=== PATIENT | female | born 1970 | race Caucasian/White ===

== ENCOUNTER 2024-08-01 16:32 | Inpatient (IN) | payer OTHER ==
[2024-08-01] MEDS ORDERED: ACETAMINOPHEN INJECTION 100 ML ONE (18:03)
[2024-08-01] MEDS: LACTATED RINGERS SOLUTION 1000 ML INFUS.BAG IV ONE ×2 (18:23→18:48)
[2024-08-01] MEDS: ACETAMINOPHEN 1000 MG/100 ML BAG IVPB ONE (18:23)
[2024-08-01 18:36] LABS: HEMATOCRIT 38.1 % (32.4-45.2); HEMOGLOBIN 12.8 G/dL (10.7-15.3); MCH 29.9 pg (25.7-33.7); MCHC 33.6 g/dl (32.0-36.0); MEAN CELL VOLUME 88.7 fl (80-96); MEAN PLT VOLUME 9.1 fl (7.5-11.1); PLATELET COUNT 190.9 10^3/uL (134-434); RBC 4.29 10^6/uL (3.60-5.2); RDW 15.1 % (11.6-15.6); WHITE BLOOD COUNT 6.8 10^3/uL (4.0-10.8)
[2024-08-01 18:52] LABS: ALBUMIN 3.2 g/dl (3.4-5.0); ALK PHOS 1039 U/L (45-117); ANION GAP 9 mmol/L (4-13); BILIRUBIN,TOTAL 1.5 mg/dl (0.2-1); CALCIUM 8.5 mg/dl (8.5-10.1); CHLORIDE 102 mmol/L (98-107); CO2 27 mmol/L (21-32); CREATININE 0.7 mg/dl (0.6-1.3); GLUCOSE,RANDOM 94 mg/dl (74-106); MAGNESIUM 1.9 mg/dL (1.8-2.4); POTASSIUM 3.4 mmol/L (3.5-5.1); SGOT/AST 320 U/L (15-37); SGPT/ALT 448 U/L (7-52); SODIUM 138 mmol/L (136-145); TOT PROT 5.9 g/dl (6.4-8.2)
[2024-08-01 18:55] LABS: PLATELET ESTIMATE ADEQUATE
[2024-08-01] MEDS ORDERED: cefTRIAXone SODIUM 1 GM VIAL ONE (19:03)
[2024-08-01] MEDS: CEFTRIAXONE 1 GM in DEXTROSE 5%-WATER - 100 ML IVPB ONE (19:13)
[2024-08-01 21:16] LABS: HIV INTERPRETATION NEGATIVE (NEGATIVE)
[2024-08-01 21:41] LABS: ALBUMIN 2.8 g/dl (3.4-5.0); ALK PHOS 918 U/L (45-117); ANION GAP 7 mmol/L (4-13); BILIRUBIN,TOTAL 1.5 mg/dl (0.2-1); CHLORIDE 104 mmol/L (98-107); CO2 26 mmol/L (21-32); CREATININE 0.6 mg/dl (0.6-1.3); GLUCOSE,RANDOM 88 mg/dl (74-106); POTASSIUM 3.4 mmol/L (3.5-5.1); SGOT/AST 291 U/L (15-37); SGPT/ALT 386 U/L (7-52); SODIUM 137 mmol/L (136-145); TOT PROT 5.1 g/dl (6.4-8.2)
[2024-08-01] MEDS ORDERED: SODIUM CHLORIDE 1,000 ML IV SCH (21:45)
[2024-08-02] MEDS: KCL 10 MEQ IVPB 10 MEQ/100 ML INFUS.BAG IVPB SCH (00:36)
[2024-08-02 00:52] VITALS: BMI 24.6
[2024-08-02 08:34] LABS: CALCIUM 7.8 mg/dl (8.5-10.1); CREATININE 0.5 mg/dl (0.6-1.3); MAGNESIUM 1.9 mg/dL (1.8-2.4); PHOSPHOROUS 2.8 (2.5-4.9); POTASSIUM 3.5 mmol/L (3.5-5.1)
[2024-08-02 09:21] LABS: HEMATOCRIT 33.8 % (32.4-45.2); HEMOGLOBIN 11.4 GM/dL (10.7-15.3); MCH 29.3 pg (25.7-33.7); MCHC 33.8 g/dl (32.0-36.0); MEAN CELL VOLUME 86.7 fl (80-96); MEAN PLT VOLUME 8.6 fl (7.5-11.1); PLATELET COUNT 180 10^3/uL (134-434); WHITE BLOOD COUNT 6.2 K/mm3 (4.0-10.0)
[2024-08-02] MEDS: SODIUM CHLORIDE 1,000 ML IV SCH (10:00)
[2024-08-02 11:11] LABS: ANISOCYTOSIS 0; MACROCYTOSIS 0
[2024-08-02 13:29] LABS: COCAINE, UR NEGATIVE (NEGATIVE); URINE BARBITURATES NEGATIVE (NEGATIVE); URINE BENZODIAZEPINES NEGATIVE (NEGATIVE)
[2024-08-02 13:30] LABS: METHADONE, UR NEGATIVE (NEGATIVE); OPIATES, URI NEGATIVE (NEGATIVE); PHENCYCLIDINE,URINE NEGATIVE (NEGATIVE); URINE AMPHETAMINES NEGATIVE (NEGATIVE)
[2024-08-02] MEDS: CEFTRIAXONE 1 GM in DEXTROSE 5%-WATER - 50 ML IVPB SCH (16:04)
[2024-08-03 09:46] LABS: ALBUMIN 2.8 g/dl (3.4-5.0); BILIRUBIN,TOTAL 1.1 mg/dl (0.2-1); CALCIUM 7.5 mg/dl (8.5-10.1); CREATININE 0.6 mg/dl (0.6-1.3); POTASSIUM 3.2 mmol/L (3.5-5.1); TOT PROT 5.2 g/dl (6.4-8.2)
[2024-08-03 10:25] LABS: HEMATOCRIT 34.4 % (32.4-45.2); HEMOGLOBIN 11.2 GM/dL (10.7-15.3); MCH 28.4 pg (25.7-33.7); MCHC 32.4 g/dl (32.0-36.0); MEAN CELL VOLUME 87.6 fl (80-96); MEAN PLT VOLUME 8.8 fl (7.5-11.1); PLATELET COUNT 192 10^3/uL (134-434); RBC 3.93 M/mm3 (3.60-5.2); RDW 15.6 % (11.6-15.6); WHITE BLOOD COUNT 5.4 K/mm3 (4.0-10.0)
[2024-08-03 12:03] LABS: ANISOCYTOSIS 0; MACROCYTOSIS 0; TARGET CELLS 1+
[2024-08-03] MEDS: DOXYCYCLINE INJECTION 100 MG in DEXTROSE 5%-WATER 100 ML IVPB SCH (17:10)
[2024-08-03] MEDS: IBUPROFEN 400 MG TABLET (FP) PO ONE (21:40)
[2024-08-04 10:34] LABS: INR 0.91 (0.83-1.09); PROTHROMBIN TIME (PATIENT) 10.4 SEC (9.7-13.0)
[2024-08-04 10:36] LABS: ACTIVATED PTT 31.5 SECONDS (25.2-36.5)
[2024-08-04 10:39] LABS: HEMOGLOBIN 12.4 G/dL (10.7-15.3); MCH 29.7 pg (25.7-33.7); MCHC 33.6 g/dl (32.0-36.0); MEAN CELL VOLUME 88.2 fl (80-96); MEAN PLT VOLUME 9.2 fl (7.5-11.1); PLATELET COUNT 160.8 10^3/uL (134-434); RBC 4.19 10^6/uL (3.60-5.2); RDW 15.2 % (11.6-15.6)
[2024-08-04 10:45] LABS: BILIRUBIN,TOTAL 1.6 mg/dl (0.2-1); CALCIUM 7.8 mg/dl (8.5-10.1); CREATININE 0.4 mg/dl (0.6-1.3); POTASSIUM 3.4 mmol/L (3.5-5.1); TOT PROT 5.5 g/dl (6.4-8.2)
[2024-08-04] MEDS: POTASSIUM CHLORIDE TABS 10 MEQ TABLET.ER (FP) PO ONE (11:50)
[2024-08-04] MEDS: IBUPROFEN 800 MG/8 ML IJ IVPB ONE (18:48)
[2024-08-04] MEDS: IBUPROFEN (CALDOLOR) 800 MG/200 ML PREMIX BAGS IVPB ONE (18:48)
[2024-08-04] MEDS ORDERED: DEXTROSE 5% IVPB ONE (18:59)
[2024-08-04] MEDS ORDERED: WATER IVPB ONE (18:59)
[2024-08-04] MEDS ORDERED: GANCICLOVIR IVPB ONE (18:59)
[2024-08-04 20:55] LABS: HEMOGLOBIN 11.5 G/dL (10.7-15.3); MCH 29.5 pg (25.7-33.7); MEAN CELL VOLUME 87.7 fl (80-96); RBC 3.88 10^6/uL (3.60-5.2); WHITE BLOOD COUNT 3.4 10^3/uL (4.0-10.8)
[2024-08-04 20:56] LABS: MCHC 33.7 g/dl (32.0-36.0); MEAN PLT VOLUME 9.3 fl (7.5-11.1); PLATELET COUNT 145.5 10^3/uL (134-434); RDW 15.4 % (11.6-15.6)
[2024-08-04 23:13] LABS: HIV INTERPRETATION NEGATIVE (NEGATIVE)
[2024-08-05 08:34] LABS: INR 0.93 (0.83-1.09); PROTHROMBIN TIME (PATIENT) 10.6 SEC (9.7-13.0)
[2024-08-05 08:56] LABS: ALBUMIN 2.7 g/dl (3.4-5.0); BILIRUBIN,TOTAL 1.7 mg/dl (0.2-1); CALCIUM 7.5 mg/dl (8.5-10.1); CREATININE 0.5 mg/dl (0.6-1.3); POTASSIUM 3.6 mmol/L (3.5-5.1); TOT PROT 4.9 g/dl (6.4-8.2)
[2024-08-05 08:57] LABS: HEMATOCRIT 33.9 % (32.4-45.2); HEMOGLOBIN 11.4 GM/dL (10.7-15.3); MCH 29.1 pg (25.7-33.7); MCHC 33.6 g/dl (32.0-36.0); MEAN CELL VOLUME 86.7 fl (80-96); PLATELET COUNT 129 10^3/uL (134-434); RBC 3.91 M/mm3 (3.60-5.2); RDW 15.6 % (11.6-15.6); WHITE BLOOD COUNT 3.6 K/mm3 (4.0-10.0)
[2024-08-05 10:18] LABS: ANISOCYTOSIS 1+; MACROCYTOSIS 1+
[2024-08-05] MEDS: GANCICLOVIR IVPB SCH (13:43)
[2024-08-05] MEDS: SODIUM CHLORIDE IVPB SCH (13:43)
[2024-08-05 19:56] VITALS: RESP 17
[2024-08-05 21:43] VITALS: BP 135/87; PULSE 109; TEMP 100.2
[2024-08-09 17:08] LABS: E.chaff HME IgG Negative (Neg:<1:64)
[2024-08-09 20:07] LABS: C-ANCA <1:20 titer (Neg:<1:20)
== END 2024-08-05 21:15 | disposition short-term general hospital (02) | DRG 866 ==
LOC: FER 16:32 → FM/S 21:26 → UNDOADMIN 22:05 → FM/S 22:05
PROVIDERS: ADMIT Internal Medicine
DX: B25.9 Cytomegaloviral disease, unspecified (principal); K82.4 Cholesterolosis of gallbladder; K75.4 Autoimmune hepatitis; R50.9 Fever, unspecified
CPT/HCPCS: 0241U-QW; 36415; 71046-TC-FY; 74177-TC; 74181-TC; 76705-TC; 80048; 80053; 80076; 80307; 81003; 81015; 82308; 82550; 82962; 83516; 83520; 83615; 83690; 83735; 84100; 85025; 85027; 85610; 85651; 85730; 86038; 86140; 86235; 86256; 86618; 86645; 86663; 86664; 86666; 86704; 86705; 86708; 86709; 86790; 86803; 86850; 86900; 86901; 87040; 87086; 87207; 87340; 87389; 87497; 87517; 87798; 87799; 93005; 99285-25; J0131; Q9967